=== PATIENT | male | born 1950 | race Caucasian/White ===

== ENCOUNTER 2021-02-08 16:54 | Inpatient (IN) | payer MEDICAID ==
[~2021-02-08] VITALS: Ht 167.6 cm; Wt 76.7 kg
[2021-02-08 19:40] VITALS: BP 168/72
--- NOTE | 2021-02-08 19:45 | NUR ---
JAVA PROGRAMMERCUTTER OPERATOR NOTE PATIENT ARRIVED ON FLOOR, DIRECT ADMIT FROM [facility]. PATIENT SPEAKS ESTONIAN BUT ABLE TO UNDERSTAND AND SPEAK SOME [place], ALERT/ORIENTED X 4, PT ABLE TO MAKE NEEDS KNOWN. PATIENT ON TELE MONITORING, SINUS SHARRI, HR 54. PATIENT'S BP [id number]. PT STABLE ON RA, NO S/S OF DISTRESS OR SOB NOTED, BREATHING EVEN AND UNLABORED, LUNGS CLEAR ON AUSCULTATION. NO REPORTS OF CHEST PAIN AT THIS TIME. RIGHT AC #18G INTACT AND FLUSHING WELL. PATIENT AMBULATORY AND STEADY. HOME MEDICATIONS DOCUMENTED. ORIENTED PATIENT TO ROOM AND HOW TO USE CALL LIGHT. BELONGINGS CHARTED AND ACCOUNTED FOR. CONTACTED DR. RHETT US FOR MED RECON AND ORDERS. WILL CONTINUE TO MONITOR
[2021-02-08] MEDS ORDERED: LISI-768 PO (20:09)
[2021-02-08] MEDS ORDERED: PIOG45TA5 PO (20:09)
[2021-02-08] MEDS ORDERED: METF1000 PO (20:09)
[2021-02-08] MEDS ORDERED: EMPA10TA PO (20:09)
[2021-02-08] MEDS ORDERED: ASPI-1169 PO (20:09)
[2021-02-08] MEDS ORDERED: GLIP10TA3 PO (20:09)
[2021-02-08] MEDS ORDERED: DEXTROSE 50%-WATER 50 ML DISP.SYRIN IV PRN (20:30)
[2021-02-08] MEDS ORDERED: MORPHINE SULFATE INJ 2 MG/ML DISP.SYRIN IV PRN (21:00)
[2021-02-08] MEDS ORDERED: ACETAMINOPHEN 325 MG TABLET PO PRN (21:00)
[2021-02-08] MEDS ORDERED: Z GUARD REMEDY 2 OZ OINT TP PRN (21:00)
[2021-02-08] MEDS ORDERED: ONDANSETRON HCL/PF 4 MG/2 ML VIAL IVP PRN (21:00)
[2021-02-08] MEDS ORDERED: LISINOPRIL (5MG) 5 MG TABLET PO SCH (22:00)
--- NOTE | 2021-02-08 22:00 | NUR ---
CLOTH BIN PACKER NOTES PATIENT'S BLOOD SUGAR 174, PT REFUSED INSULIN, STATED HE DIDN'T WANT TO TAKE INSULIN, JUST HIS HOME MEDICATIONS FOR BLOOD SUGAR
[2021-02-08] MEDS: BLOOD SUGAR DIAGNOSTIC 1 EACH STRIP IN SCH (22:08)
[2021-02-08] MEDS: INSULIN REGULAR, HUMAN 100 UNIT/ML 3 ML VIAL SQ PRN (22:09)
[2021-02-09] VITALS: BP 140/67
[2021-02-09 04:00] VITALS: BP 140/67
[2021-02-09 05:07] LABS: BASOPHILS # (AUTO) 0.1 K/uL (0.0-0.2); BASOPHILS % (AUTO) 0.6 % (0.0-2.0); EOSINOPHILS % (AUTO) 0.9 % (0.0-6.0); HEMATOCRIT 45 % (33-45); HEMOGLOBIN 14.9 g/dL (11.5-14.8); LYMPHOCYTES % (AUTO) 77.3 % (20.0-44.0); MEAN CORPUSCULAR HGB CONC 33 g/dl (31.0-36.0); MEAN CORPUSCULAR VOLUME 81 fL (82-100); MONOCYTES # (AUTO) 0.3 K/uL (0.1-1.30); MONOCYTES % (AUTO) 2.4 % (2.0-12.0); NEUTROPHILS % (AUTO) 18.8 % (43.0-81.0); PLATELET COUNT (AUTO) 142 K/uL (150-450); RED BLOOD CELL COUNT(AUTO) 5.61 MIL/uL (4.0-5.2); WHITE BLOOD COUNT (AUTO) 10.4 K/uL (4.3-11.0)
[2021-02-09 05:36] LABS: ALANINE AMINOTRANSFERASE 15 U/L (12-78); ALBUMIN 3.9 g/dL (3.4-5.0); ALKALINE PHOSPHATASE 57 U/L (46-116); ASPARTATE AMINOTRANSFERASE 17 U/L (15-37); BILIRUBIN,TOTAL 1.6 mg/dL (0.2-1.0); CARBON DIOXIDE 28 mmol/L (21-32); CHLORIDE 103 mmol/L (98-107); GLUCOSE 164 mg/dL (74-106); MAGNESIUM 2.5 mg/dL (1.8-2.4); PHOSPHORUS 4.3 mg/dL (2.5-4.9); POTASSIUM 5.3 mmol/L (3.5-5.1); SODIUM SERUM 139 mmol/L (136-145); TOTAL PROTEIN, SERUM 7.6 g/dL (6.4-8.2); UREA NITROGEN, BLOOD 21 mg/dL (7-18)
[2021-02-09 05:47] LABS: CHOLESTEROL 189 mg/dL (<200); HDL CHOLESTEROL 59 mg/dL (40-60); LDL 116 mg/dL (0-99); TRIGLYCERIDES 213 mg/dL (30-150)
[2021-02-09 05:48] LABS: CREATININE 1.3 mg/dL (0.6-1.3)
[2021-02-09 06:29] LABS: BAND % (MANUAL) 2 % (0.0-5.0); NEUTROPHILS % (MANUAL) 24 (42-76)
[2021-02-09 06:30] LABS: BASOPHILS % (MANUAL) 0 % (0.0-2.0); EOSINOPHILS % (MANUAL) 2 % (0-4); LYMPHOCYTES % (MANUAL) 67 % (16-48); MONOCYTES % (MANUAL) 5 % (0-11.0)
--- NOTE | 2021-02-09 06:59 | NUR ---
CONTROLLER INSTRUCTOR CLOSING NOTES PATIENT RESTING IN BED, ALERT/ORIENTED X 4, PATIENT ABLE TO MAKE NEEDS KNOWN. PT ON TELE MONITORING, SINUS RHYTHM WITH BBB AND PAC'S. PATIENT BS 146 THIS AM, PATIENT REFUSING INSULIN DESPITE EXPLANATION OF RISKS AND BENEFITS, PT STATES HE ONLY WANTS TO TAKE HIS PO BLOOD SUGAR MEDICATION, NOT INSULIN. MEDICATIONS GIVEN ORDERED, PT NEEDS MET THROUGHOUT SHIFT. PT AMBULATORY, STEADY AND HAS BRP. SAFETY MEASURES IN PLACE: BED LOCKED IN LOW POSITION, SIDE RAILS UP X 2, CALL LIGHT WITHIN REACH. WILL ENDORSE TO DAY SHIFT NURSE FOR CONTINUITY OF CARE
[2021-02-09] MEDS: BLOOD SUGAR DIAGNOSTIC 1 EACH STRIP IN SCH ×4 (07:13→21:21)
[2021-02-09] MEDS: INSULIN REGULAR, HUMAN 100 UNIT/ML 3 ML VIAL SQ PRN ×2 (07:13→21:37)
[2021-02-09 08:00] VITALS: BP 126/77
--- NOTE | 2021-02-09 08:00 | NUR ---
RECEIVED PT. IN AM,ARMENIAN SPEAKING.VS STABLE,SKIN WARM AND DRY.DTR. CALLING IN.
[2021-02-09] MEDS: PIOGLITAZONE HCL 15 MG TABLET PO SCH (09:00)
[2021-02-09] MEDS: METFORMIN 500 MG TABLET PO SCH ×2 (09:00→21:21)
[2021-02-09] MEDS: glipiZIDE 10 MG TABLET PO SCH (09:00)
[2021-02-09] MEDS ORDERED: IV NS 0.9% 1,000 ML IV PRN (09:00)
[2021-02-09] MEDS: ASPIRIN 81 MG TAB.CHEW PO SCH (09:05)
--- NOTE | 2021-02-09 10:00 | NUR ---
SPOKE WITH DTR. REGARDING CT ANGIO OF HEART,OK'D PROCEDURE.CONSENT SIGNED.THEN AFTER TAKEN TO LAB,MDS DEFERRED TEST PLANS FOR HEART CATH TOMORROW.PT. NON AMERICAN SPEAKING.
--- NOTE | 2021-02-09 10:45 | NUR ---
ORIGINALLY PLANS FOR HYDRATING IV DUE TO PLAN FOR CONTRAST THEN CT CANCELLED.DR. GARCIA CALLED AND SAID TO HOLD IV.HEP LOCK DISCONNECTED FROM IV.
[2021-02-09 13:26] LABS: IRON, SERUM 91 ug/dl (50-175); TOTAL IRON BINDING CAPACITY 347 ug/dl (250-450)
[2021-02-09 13:40] LABS: FERRITIN 91 ng/mL (8-388)
[2021-02-09 16:05] VITALS: BP 113/69
--- NOTE | 2021-02-09 17:00 | NUR ---
CALL FROM SECURITY PT. DOWNSTAIRS LOOKING FOR FOOD.FASHION CONSULTANT SALES DOWN TO GET PT.THOUGH SEEMS ALERT.
--- NOTE | 2021-02-09 18:00 | NUR ---
PT. IN RM. QUIET,COOPERATIVE.
--- NOTE | 2021-02-09 19:30 | NUR ---
RN OPENING NOTE PATIENT IS IN BED, AWAKE. A/O X 3, YI SPEAKING ONLY. NO COMPLAINS OF CP AT THIS TIME. PATIENT NOT IN ANY DISTRESS. WILL CALL DR. BALLARD TO CONFIRM HEART CATH AND CALL DAUGHTER FOR CONSENT. PER PT HEART CATH TO BE DONE AT 0700 TOMORROW. SAFETY MEASURES IN PLACE: BED LOCKED AND IN LOWEST POSITION, CALL LIGHT WITHIN REACH, SIDE RAILS UP. WILL MONITOR CLOSELY.
[2021-02-09 20:00] VITALS: BP 110/76
--- NOTE | 2021-02-09 20:58 | NUR ---
RN NOTE CALLED PHARMACY TO CONFIRM IF IT IS OK TO GIVE METFORMIN LATE IT WAS NOT GIVEN IN THE DAYSHIFT. PHARMACY ROSARIO MAHONEY FOR LATE ADMIN.
--- NOTE | 2021-02-09 21:40 | NUR ---
RN NOTE BS 165 MG/DL. PATIENT REFUSED INSULIN, GAVE METFORMIN. SNACKS PROVIDED. PATIENT TO BE NPO AFTER MIDNIGHT.
[2021-02-10 04:39] LABS: BASOPHILS % (AUTO) 0.2 % (0.0-2.0); EOSINOPHILS % (AUTO) 1.2 % (0.0-6.0); HEMATOCRIT 45 % (39-51); HEMOGLOBIN 14.5 g/dL (13.5-17.5); LYMPHOCYTES % (AUTO) 83.2 % (20.0-44.0); MEAN CORPUSCULAR HGB CONC 32 g/dl (31.0-36.0); MEAN CORPUSCULAR VOLUME 81 fL (80-96); MONOCYTES % (AUTO) 2.6 % (2.0-12.0); NEUTROPHILS % (AUTO) 12.8 % (43.0-81.0); PLATELET COUNT (AUTO) 140 K/uL (150-450); RED BLOOD CELL COUNT(AUTO) 5.55 MIL/uL (4.5-6.0); WHITE BLOOD COUNT (AUTO) 9.1 K/uL (4.3-11.0)
[2021-02-10 04:40] LABS: LYMPHOCYTES # (AUTO) 7.6 K/uL (0.8-4.8); MONOCYTES # (AUTO) 0.2 K/uL (0.1-1.30); NEUTROPHILS # (AUTO) 1.2 K/uL (1.8-8.9)
[2021-02-10 04:57] LABS: ALANINE AMINOTRANSFERASE 19 U/L (12-78); ALBUMIN 3.8 g/dL (3.4-5.0); ALKALINE PHOSPHATASE 54 U/L (46-116); ASPARTATE AMINOTRANSFERASE 18 U/L (15-37); BILIRUBIN,TOTAL 1.2 mg/dL (0.2-1.0); CALCIUM, SERUM 9.1 mg/dL (8.5-10.1); CARBON DIOXIDE 30 mmol/L (21-32); CHLORIDE 103 mmol/L (98-107); CREATININE 1.5 mg/dL (0.6-1.3); GLUCOSE 144 mg/dL (74-106); MAGNESIUM 2.3 mg/dL (1.8-2.4); PHOSPHORUS 4.4 mg/dL (2.5-4.9); POTASSIUM 5.1 mmol/L (3.5-5.1); SODIUM SERUM 139 mmol/L (136-145); TOTAL PROTEIN, SERUM 7.5 g/dL (6.4-8.2); UREA NITROGEN, BLOOD 22 mg/dL (7-18)
[2021-02-10 05:16] LABS: NEUTROPHILS % (MANUAL) 7 (42-76)
[2021-02-10 05:17] LABS: BAND % (MANUAL) 1 % (0.0-5.0); BASOPHILS % (MANUAL) 0 % (0.0-2.0); EOSINOPHILS % (MANUAL) 3 % (0-4); LYMPHOCYTES % (MANUAL) 82 % (16-48); MONOCYTES % (MANUAL) 7 % (0-11.0)
[2021-02-10] MEDS ORDERED: IV NS 0.9% 1,000 ML ONE (05:33)
[2021-02-10] MEDS ORDERED: NITROGLYCERIN IN 5 % DEXTROSE 250 ML IV ONE (05:34)
[2021-02-10] MEDS ORDERED: LIDOCAINE HCL/PF 1% 30 ML SDV ONE (05:34)
[2021-02-10] MEDS ORDERED: IODIXANOL 150 ML IV ONE (05:34)
--- NOTE | 2021-02-10 06:15 | NUR ---
RN NOTE PATIENT BROUGHT DOWN TO HYDRODYNAMICS PROFESSOR. PATIENT STABLE AT THIS TIME. BS 132 MG/DL, NO COVERAGE GIVEN D/T NPO STATUS.
[2021-02-10] MEDS: INSULIN REGULAR, HUMAN 100 UNIT/ML 3 ML VIAL SQ PRN (06:29)
[2021-02-10] MEDS: BLOOD SUGAR DIAGNOSTIC 1 EACH STRIP IN SCH ×2 (06:29→11:45)
[2021-02-10] MEDS ORDERED: HEPARIN SODIUM, PORCINE 1,000 UNIT/ML VIAL ONE (06:32)
[2021-02-10] MEDS ORDERED: FENTANYL PF 100MCG/2ML AMPUL ONE (06:32)
[2021-02-10] MEDS ORDERED: MIDAZOLAM HCL 2 MG/2ML VIAL ONE (06:32)
--- NOTE | 2021-02-10 07:40 | NUR ---
received pt. back from cath procedure.vs stable.skin warm and dry,very groggy,but arousable.rt. wrist band intact.
[2021-02-10 08:00] VITALS: BP 111/77
--- NOTE | 2021-02-10 08:30 | NUR ---
started removing air from wrist band,pt. tolerating.appears comfortable.iv of normal saline started.
--- NOTE | 2021-02-10 08:40 | NUR ---
dtr. calling and dr. henderson here.given dtr's # so dr. henderson can call her.
[2021-02-10] MEDS ORDERED: CARVEDILOL 3.125 MG TABLET PO SCH (09:00)
[2021-02-10 09:07] LABS: IMMUNOGLOBULIN A, SERUM 166 mg/dL (61-437); IMMUNOGLOBULIN G, SERUM 1115 mg/dL (603-1613); IMMUNOGLOBULIN M, SERUM 47 mg/dL (15-143)
[2021-02-10] MEDS: PIOGLITAZONE HCL 15 MG TABLET PO SCH (11:58)
[2021-02-10] MEDS: ASPIRIN 81 MG TAB.CHEW PO SCH (11:58)
[2021-02-10] MEDS: METFORMIN 500 MG TABLET PO SCH (11:59)
[2021-02-10 12:00] VITALS: BP 144/86
[2021-02-10] MEDS: glipiZIDE 10 MG TABLET PO SCH (12:00)
[2021-02-10 12:06] LABS: *ANA ANTI-CENTROMERE B AB <0.2 AI (0.0-0.9); *ANA ANTI-DNA(DS) AB, QN 7 IU/mL (0-9); *ANA ANTI-JO-1 <0.2 AI (0.0-0.9); *ANA ANTICHROMATIN ANTIBODY <0.2 AI (0.0-0.9); *ANA RNP ANTIBODIES <0.2 AI (0.0-0.9); *ANA SJOGREN'S ANTI-SS-A <0.2 AI (0.0-0.9); *ANA SJOGREN'S ANTI-SS-B <0.2 AI (0.0-0.9); *ANAANTI-SCLERODERMA-70 AB <0.2 AI (0.0-0.9); *ANASMITH AB <0.2 AI (0.0-0.9); *SPE A/G RATIO 1.1 (0.7-1.7); *SPE ALBUMIN 3.8 g/dL (2.9-4.4); *SPE ALPHA-1-GLOBULIN 0.2 g/dL (0.0-0.4); *SPE BETA GLOBULIN 1.1 g/dL (0.7-1.3); *SPE GLOBULIN, TOTAL 3.5 g/dL (2.2-3.9); *SPE M-SPIKE Not Observed g/dL (Not Observed); *SPEGAMMA GLOBULIN 1.1 g/dL (0.4-1.8)
--- NOTE | 2021-02-10 13:00 | NUR ---
recyclable materials sorter wrist band removed.bandaid applied.
[2021-02-10 13:05] LABS: BILIRUBIN,URINE NEGATIVE (NEGATIVE); COLOR,URINE YELLOW (YELLOW); LEUKOCYTE ESTERASE ,URINE NEGATIVE (NEGATIVE); NITRITE, URINE NEGATIVE (NEGATIVE); PROTEIN,URINE NEGATIVE (NEGATIVE); UGLUCOSE >=1000 mg/dL (NEGATIVE); UROBILINOGEN,URINE 0.2 EU/dL (0.2)
[2021-02-10 13:11] LABS: RBC,URINE NONE SEEN /HPF (0-2); WBC,URINE 0-2 /HPF (0-3)
[2021-02-10 13:12] LABS: BACTERIA,URINE Rare /HPF (None Seen); SQUAMOUS EPITHELIAL CELL,UR Rare /HPF (None Seen)
--- NOTE | 2021-02-10 14:00 | NUR ---
iv completed and removed.dtr. called and given dc instructions as pt. speaks french.both hep locks out.
--- NOTE | 2021-02-10 16:30 | NUR ---
family here at hosp.pt. dressed and taken via w/c to lobby via w/c for discharge.
== END 2021-02-10 16:30 | disposition home or self-care (01) | DRG 191 ==
LOC: EDSEX 19:35 → TELE 19:35 → MED 02-09 12:11
PROVIDERS: ADMIT Nurse Practitioner Acute Care
PROC: 4A023N7 Measurement of Cardiac Sampling and Pressure, Left Heart, Percutaneous Approach (ICD-10-PCS; principal; 2021-02-10)
PROC: B211YZZ Fluoroscopy of Multiple Coronary Arteries using Other Contrast (ICD-10-PCS; 2021-02-10)
PROC: B215YZZ Fluoroscopy of Left Heart using Other Contrast (ICD-10-PCS; 2021-02-10)
PROC: B31HYZZ Fluoroscopy of Right Upper Extremity Arteries using Other Contrast (ICD-10-PCS; 2021-02-10)
DX: I25.10 Atherosclerotic heart disease of native coronary artery without angina pectoris (principal); N17.9 Acute kidney failure, unspecified; D69.6 Thrombocytopenia, unspecified; E11.42 Type 2 diabetes mellitus with diabetic polyneuropathy; E87.1 Hypo-osmolality and hyponatremia; D75.1 Secondary polycythemia; I25.82 Chronic total occlusion of coronary artery; D64.9 Anemia, unspecified; E78.5 Hyperlipidemia, unspecified; D72.820 Lymphocytosis (symptomatic); I10 Essential (primary) hypertension; Z98.61 Coronary angioplasty status; I70.0 Atherosclerosis of aorta; E80.6 Other disorders of bilirubin metabolism; Z79.82 Long term (current) use of aspirin; Z79.84 Long term (current) use of oral hypoglycemic drugs; Z79.899 Other long term (current) drug therapy
CPT/HCPCS: 36415; 71045-TC; 76700-TC; 80053-TC; 80061-TC; 81001; 82728-TC; 82784; 82962-TC; 83540-TC; 83735-TC; 84100-TC; 84155; 84165; 84443-TC; 84484-TC; 85025-TC; 85610-TC; 85730-TC; 86225; 86235; 86334; 86431-TC; 86706; 86803; 87081-TC; 87340; 93307-TC; C1887; G0378; G0500; J1644; J1815; J2250; J3010; J3490; J7030; Q9967